=== PATIENT | male | born 1985 | race Hispanic/Latino ===

== ENCOUNTER 2018-10-02 17:04 | Emergency (ER) | payer SELFPAY ==
[~2018-10-02] VITALS: Ht 172.7 cm; Wt 75.0 kg
[2018-10-02 17:49] LABS: HEMATOCRIT 49.2 % (39.0-50.0); HEMOGLOBIN 16.8 g/dl (14.0-18.0); IMMATURE GRANULOCYTES 0.5 % (0.0-5.0); MEAN CELL VOLUME 89.3 fL CALC (80.0-100.0); MEAN CORPUSCULAR HGB 30.5 pG CALC (26.0-32.0); MEAN CORPUSCULAR HGB CONC 34.1 g/L CALC (32.0-36.0); NEUT# 8.54 thou/uL (1.82-7.42); RED BLOOD COUNT 5.51 mill/uL (4.70-6.10); RED CELL DISTRI WIDTH 13.2 % (11.5-15.5)
[2018-10-02 18:11] LABS: ALBUMIN 4.9 g/dL (3.2-5.0); ALKALINE PHOSPHATASE 118 u/l (38-126); ANION GAP 17 (6-22 (CALC)); BILIRUBIN, TOTAL 0.7 mg/dL (0.0-1.4); BUN 10 mg/dL (9-20); BUN/CREATININE RATIO 12 (12-20 (CALC)); CARBON DIOXIDE 24 mmol/l (22-30); CHLORIDE 102 mmol/l (95-108); CREATININE 0.9 mg/dL (0.7-1.3); GFR > 60 ML/MIN (>=60 (CALC)); GFR FOR AFR.AMER. > 60 ML/MIN (>=60 (CALC)); SGOT/AST 40 u/l (17-59); SODIUM 139 mmol/l (137-146); TOTAL PROTEIN 8.8 g/dL (6.3-8.2)
[2018-10-02 18:14] LABS: INFLUENZA A POSITIVE (NONE DETECT); INFLUENZA B NONE DETECTED (NONE DETECT)
[2018-10-02] MEDS ORDERED: TAM75CAP PO (18:37)
[2018-10-02] MEDS ORDERED: AMOXICILLIN500 MG PO (18:37)
[2018-10-02 19:02] LABS: URINE BILIRUBIN - DIPSTICK NEGATIVE (NEGATIVE); URINE BLOOD DIPSTICK NEGATIVE (NEGATIVE); URINE COLOR YELLOW; URINE GLUCOSE - DIPSTICK NEGATIVE (NEGATIVE); URINE KETONE NEGATIVE (NEGATIVE); URINE LEUK ESTERASE NEGATIVE (NEGATIVE); URINE NITRITE - DIPSTICK NEGATIVE (Negative); URINE PROTEIN - DIPSTICK NEGATIVE (NEG-TRACE); URINE SPECIFIC GRAVITY 1.025; URINE UROBILINOGEN - DIPSTICK 0.2 E.U./dL (0.2)
[2018-10-02 19:04] LABS: URINE CLARITY CLEAR
[2018-10-02 19:36] VITALS: BP 118/69
== END 2018-10-02 19:28 | disposition home or self-care (01) | DRG 153 ==
LOC: EDBD 17:04 → ED 17:04
PROVIDERS: Emergency Medicine
DX: J02.0 Streptococcal pharyngitis (principal); J10.1 Influenza due to other identified influenza virus with other respiratory manifestations; R50.9 Fever, unspecified; R05 Cough; R51 Headache; R11.2 Nausea with vomiting, unspecified